=== PATIENT | female | born 1965 | race Two or more races ===

== ENCOUNTER 2018-11-01 09:00 | Emergency (ER) | payer OTHER ==
[~2018-11-01] VITALS: Ht 160 cm; Wt 63.5 kg
[2018-11-01] MEDS ORDERED: ASPIRIN81 MG (09:33)
[2018-11-01] MEDS ORDERED: VITAMIN D1000 UNI1 (09:34)
[2018-11-01] MEDS ORDERED: LIPITOR40 MG (09:34)
[2018-11-01] MEDS ORDERED: NAPROXEN500 MG PO (11:45)
[2018-11-01] MEDS ORDERED: NORFLEX100MG PO (11:45)
== END 2018-11-01 13:25 | disposition home or self-care (01) ==
LOC: ER 09:00
DX: M62.838 Other muscle spasm (principal)

== ENCOUNTER 2019-05-09 07:28 | Outpatient (CLI) | payer OTHER ==
[~2019-05-09 07:28] MED LIST: ASPIRIN81 MG; LIPITOR40 MG; NAPROXEN500 MG PO; NORFLEX100MG PO; VITAMIN D1000 UNI1
== END 2019-05-09 07:57 | disposition home or self-care (01) ==
LOC: NUCLEAR 07:28
DX: E05.00 Thyrotoxicosis with diffuse goiter without thyrotoxic crisis or storm (principal)
CPT/HCPCS: 78012; A9531

== ENCOUNTER 2019-05-10 11:40 | Outpatient (CLI) | payer OTHER | END 2019-05-10 11:47 | disposition home or self-care (01) | LOC: NUCLEAR 11:40 | DX: E05.00 Thyrotoxicosis with diffuse goiter without thyrotoxic crisis or storm (principal) | CPT/HCPCS: 78013; A9512 ==

== ENCOUNTER 2019-11-26 07:47 | Outpatient (CLI) | payer OTHER | END 2019-11-26 08:28 | disposition home or self-care (01) | LOC: RAD 07:47 | PROVIDERS: ATTEND Internal Medicine Cardiovascular Disease | DX: I10 Essential (primary) hypertension (principal); M99.01 Segmental and somatic dysfunction of cervical region; M99.02 Segmental and somatic dysfunction of thoracic region; M99.03 Segmental and somatic dysfunction of lumbar region; M99.04 Segmental and somatic dysfunction of sacral region ==

== ENCOUNTER 2020-03-19 14:36 | Outpatient (CLI) | payer OTHER | END 2020-03-19 14:41 | disposition home or self-care (01) | LOC: RAD 14:36 | PROVIDERS: ATTEND Orthopaedic Surgery | DX: M48.02 Spinal stenosis, cervical region (principal); G31.89 Other specified degenerative diseases of nervous system ==

== ENCOUNTER 2020-05-02 12:33 | Outpatient (CLI) | payer OTHER | END 2020-05-02 13:04 | disposition home or self-care (01) | LOC: RAD 12:33 | PROVIDERS: ATTEND Physical Medicine & Rehabilitation | DX: M19.071 Primary osteoarthritis, right ankle and foot (principal) ==

== ENCOUNTER 2020-06-10 09:57 | Outpatient (CLI) | payer OTHER | END 2020-06-10 10:07 | disposition home or self-care (01) | LOC: RAD 09:57 | PROVIDERS: ATTEND Orthopaedic Surgery | DX: M48.02 Spinal stenosis, cervical region (principal) ==

== ENCOUNTER 2022-06-02 09:11 | Outpatient (CLI) | payer OTHER | END 2022-06-02 09:21 | disposition home or self-care (01) | LOC: MRI 09:11 | DX: M54.41 Lumbago with sciatica, right side (principal); M54.42 Lumbago with sciatica, left side; M54.6 Pain in thoracic spine | CPT/HCPCS: 72146; 72148 ==